=== PATIENT | male | born 1970 | race Caucasian/White ===

== ENCOUNTER 2024-04-02 20:47 | Emergency (ER) | payer BC, OTHER ==
[~2024-04-02] VITALS: Ht 175.3 cm; Wt 77.1 kg
[2024-04-02 23:44] VITALS: BP 110/85; TEMP 98.2; O2SAT 98
== END 2024-04-02 23:44 | disposition home or self-care (01) ==
LOC: ER 20:51
DX: S20.212A Contusion of left front wall of thorax, initial encounter (principal); X58.XXXA Exposure to other specified factors, initial encounter; Y93.89 Activity, other specified; Y92.89 Other specified places as the place of occurrence of the external cause; Y99.8 Other external cause status
CPT/HCPCS: 71100-TC